=== PATIENT | female | born 1980 | race Caucasian/White ===

== ENCOUNTER 2021-10-08 11:09 | Emergency (ER) | payer BC ==
[2021-10-08 13:48] VITALS: RESP 18
[2021-10-08] MEDS ORDERED: SODIUM CHLORIDE 0.9% 1,000 ML IV STA (13:51)
--- NOTE | 2021-10-08 13:54 | ED ---
General Adult HPI - General Source: patient, RN notes reviewed Mode of arrival: wheelchair Limitations: no limitations <Rayo Hassan - Last Filed: 10/08/21 13:50> <Hoa Sauceda - Last Filed: 10/11/21 00:32> - General Chief complaint: Upper Respiratory Infection Stated complaint: COVID+, dizzy cold finger Time Seen by Provider: 10/08/21 13:49 - History of Present Illness Initial comments: 40-year-old female presents to the emergency room for not feeling well. Patient has had cough congestion and a head cold for 5 days now. Patient tested positive for Herr virus 5 days ago. Patient denies any fevers or shortness of breath. However today patient felt lightheaded when doing is on-call for work. This prompted her to want to get her oxygen checked so she presented to the emergency room. Patient's lightheadedness does feel better at this time. Patient has no other complaints at this time including shortness of breath, chest pain, abdominal pain, nausea or vomiting, headache, or visual changes. (Rayo Hassan) - Related Data Allergies Allergy/AdvReac Type Severity Reaction Status Date / Time No Known Allergies Allergy Verified 10/08/21 13:47 Review of Systems ROS Other: All systems not noted in ROS Statement are negative. <Rayo Hassan - Last Filed: 10/08/21 13:50> ROS Other: All systems not noted in ROS Statement are negative. <Hoa Sauceda - Last Filed: 10/11/21 00:32> ROS Statement: Those systems with pertinent positive or pertinent negative responses have been documented in the HPI. Past Medical History Past Medical History: No Reported History History of Any Multi-Drug Resistant Organisms: None Reported Additional Past Surgical History / Comment(s): otoplasty Past Psychological History: No Psychological Hx Reported Smoking Status: Former smoker Past Alcohol Use History: Occasional Past Drug Use History: None Reported <Rayo Hassan - Last Filed: 10/08/21 13:50> General Exam Limitations: no limitations General appearance: alert, in no apparent distress Head exam: Present: atraumatic Eye exam: Present: normal appearance, PERRL, EOMI. Absent: scleral icterus, conjunctival injection ENT exam: Present: normal exam, mucous membranes moist Neck exam: Present: normal inspection, full ROM. Absent: tenderness Respiratory exam: Present: normal lung sounds bilaterally. Absent: respiratory distress, wheezes Cardiovascular Exam: Present: regular rate, normal rhythm GI/Abdominal exam: Present: soft, normal bowel sounds. Absent: distended, tenderness Neurological exam: Present: alert <Rayo Hassan - Last Filed: 10/08/21 13:50> Course Vital Signs 10/08/21 10/08/21 10/08/21 13:39 14:18 14:59 Temperature 98.7 F 99 F 99 F Pulse Rate 76 64 71 Respiratory 18 18 18 Rate Blood Pressure 129/80 130/68 125/83 O2 Sat by Pulse 98 97 97 Oximetry Medical Decision Making <Rayo Hassan - Last Filed: 10/08/21 13:50> <Hoa Sauceda - Last Filed: 10/11/21 00:32> - Medical Decision Making Vitals are stable. Patient is well-appearing. Patient tested positive for Herr virus outpatient. Discussed risks versus benefits of antibody infusion. Patient does prefer this be completed today. We will also give patient some fluids at this time given she was lightheaded earlier and that may help. recommend she follow up with her doctor and return for any worsening symptoms. (Rayo Hassan) I was available for consultation in the emergency department. The history and physical exam were done by the midlevel provider. I was consulted for this patients care. I reviewed the case with the midlevel provider and based on their presentation of the patient, I agree with the assessment, medical decision making and plan of care as documented. Chart was dictated using [employer] dictation software. Attempts were made to correct any dictation errors however some typographical errors may persist. (Hoa Sauceda) Disposition Is patient prescribed a controlled substance at d/c from ED?: No Time of Disposition: 13:53 <Rayo Hassna - Last Filed: 10/08/21 13:50> <Hoa Sauceda - Last Filed: 10/11/21 00:32> Clinical Impression: COVID Disposition: HOME SELF-CARE Condition: Good Instructions (If sedation given, give patient instructions): Coronavirus Disease 2019 (COVID-19) Additional Instructions: Please follow-up with your doctor in one to 2 days. Take vitamins C and D and zinc. Return to the emergency room for any worsening symptoms. Referrals: Avtar Victoria MD [REFERRING] - 1-2 days
[2021-10-08] MEDS ORDERED: CASIRIVIMAB (REGN10933) (EUA) 600 MG, IMDEVIMAB (REGN10987) (EUA) 600 MG in SODIUM CHLO... IVPB ONE (14:00)
[2021-10-08] MEDS ORDERED: SODIUM CHLORIDE 0.9% 50 ML IVPB ONE (14:00)
[2021-10-08 14:26] VITALS: TEMP 99
[2021-10-08 15:00] VITALS: BP 125/83; PULSE 71
== END 2021-10-08 16:08 | disposition home or self-care (01) ==
LOC: EC 11:09
DX: U07.1 COVID-19 (principal); Z87.891 Personal history of nicotine dependence
CPT/HCPCS: 99283 ×2; 96361 ×2; M0243; Q0243; 96360

== ENCOUNTER → 2022-02-08 | Outpatient (CLI) | payer BC ==
--- NOTE | 2022-02-12 13:38 | MM ---
Reason for exam: screening (asymptomatic). Baseline mammogram. History: Family history of breast cancer in aunt at age 45. Physical Findings: A clinical breast exam by your physician is recommended on an annual basis and results should be correlated with mammographic findings. MG Screening Mammo w CAD Bilateral CC and MLO view(s) were taken. The breast tissue is heterogeneously dense. This may lower the sensitivity of mammography. There is no discrete abnormality. ASSESSMENT: Negative, BI-RAD 1 RECOMMENDATION: Routine screening mammogram of both breasts in 1 year. Patient should continue monthly self breast exams. A negative report should not preclude additional follow up of suspicious palpable abnormalities.
== END | disposition home or self-care (01) ==
LOC: RADMAMWWP 14:12
PROVIDERS: ATTEND Family Medicine
DX: Z12.31 Encounter for screening mammogram for malignant neoplasm of breast (principal); Z80.3 Family history of malignant neoplasm of breast
CPT/HCPCS: 77067

== ENCOUNTER → 2023-07-02 | Outpatient (CLI) | payer BC ==
--- NOTE | 2023-07-03 17:46 | MM ---
Reason for Exam: Screening (asymptomatic). Last mammogram was performed 1 year(s) and 5 month(s) ago. Patient History: Menarche at age 12. First Full-Term at age 17. Premenopausal. Hormonal Contraceptives for 6 years from age 18 until age 24. Maternal aunt had breast cancer, age 45. Risk Values: Isabella 5 year model risk: 0.5%. NCI Lifetime model risk: 7.1%. Prior Study Comparison: 02/08/2022 Bilateral Screening Mammogram, [facility]. Tissue Density: The breast tissue is extremely dense which could obscure a lesion on mammography. Findings: Analyzed By CAD. Pattern appears symmetrical. No suspicious groups of microcalcifications, spiculated or lobular masses, architectural distortion or other secondary signs of malignancy are mammographically apparent. Overall Assessment: Benign, BI-RAD 2 Management: Screening Mammogram of both breasts in 1 year. A negative mammogram report should not preclude additional follow up of suspicious palpable abnormalities. Patient should continue monthly self breast exam. A clinical breast exam by your physician is recommended on an annual basis and results should be correlated with mammographic findings. Electronically signed and approved by: Marcos Bowman D.O. Radiologis
== END | disposition home or self-care (01) ==
LOC: RADMAMWWP 14:24
PROVIDERS: ATTEND Family Medicine
DX: Z12.31 Encounter for screening mammogram for malignant neoplasm of breast (principal); Z80.3 Family history of malignant neoplasm of breast
CPT/HCPCS: 77067

== ENCOUNTER → 2024-02-10 | Outpatient (CLI) | payer BC ==
--- NOTE | 2024-02-10 17:20 | US ---
EXAMINATION TYPE: US extremity nonvasc mass RT DATE OF EXAM: 02/10/2024 COMPARISON: NONE CLINICAL INDICATION: Female, 43 years old with history of D17.9 BENIGN LIPOMATOUS NEOPLASM, UNSPECIFI ED; Patient has lump on right arm that has been there for a few years .Started off smaller, but has g angel bigger over the years. No pain. TECHNIQUE: Scanned right antecubital fossa, AOC FINDINGS: There is a 3.2 x 1.2 x 3.3cm isoechoic area with well defined borders seen at patients pal pable area (right antecubital fossa). IMPRESSION: Subcutaneous lesion in the cubital fossa most compatible with fat-containing lesion such as lipoma. This can be confirmed with with MRI or CT if clinically wanted.
== END | disposition home or self-care (01) ==
LOC: RADUSWWP 15:23
PROVIDERS: ATTEND Family Medicine
DX: D17.21 Benign lipomatous neoplasm of skin and subcutaneous tissue of right arm (principal)

== ENCOUNTER → 2024-09-13 | Outpatient (CLI) | payer BC ==
--- NOTE | 2024-09-15 19:05 | MM ---
Reason for Exam: Screening (asymptomatic). Last mammogram was performed 1 year(s) and 2 month(s) ago. Patient History: Menarche at age 12. First Full-Term at age 17. Premenopausal. Hormonal Contraceptives for 6 years from age 18 until age 24. Maternal aunt had breast cancer, age 45. Risk Values: Isabella 5 year model risk: 0.6%. NCI Lifetime model risk: 7.1%. Prior Study Comparison: 02/08/2022 Bilateral Screening Mammogram, [facility]. 07/02/2023 Bilateral MG screening mammo w CAD, [facility]. Tissue Density: The breasts are heterogeneously dense, which may obscure small masses. Findings: Analyzed By CAD. There is no suspicious group of microcalcifications or new suspicious mass in either breast. Overall Assessment: Benign, BI-RAD 2 Management: Screening Mammogram of both breasts in 1 year. . Patient should continue monthly self-breast exams. A clinical breast exam by your physician is recommended on an annual basis. This exam should not preclude additional follow-up of suspicious palpable abnormalities. Note on Isabella scores and lifetime risk: 1. A Isabella score greater than 3% is considered moderate risk. If this is the case, consider specialist referral to assess eligibility for a risk reducing agent. 2. If overall lifetime risk for the development of breast cancer is 20% or higher, the patient may qualify for future screening with alternating mammogram and breast MRI. [facility], , 09/15/2024 7:02 PM. Electronically signed and approved by: Desire Baer M.D. Radiologist
== END | disposition home or self-care (01) ==
LOC: RADMAMWWP 15:46
PROVIDERS: ATTEND Family Medicine
CPT/HCPCS: 77063; 77067